=== PATIENT | female | born 1980 | race Caucasian/White ===

== ENCOUNTER 2022-07-29 15:37 | Outpatient (REF) | payer BC, SELFPAY ==
[2022-08-02 11:58] LABS: Chlamydia Result Negative (Negative); GC Result Negative (Negative)
== END 2022-07-29 15:38 | disposition home or self-care (01) ==
LOC: LBN 15:37
PROVIDERS: Visit Provider Advanced Practice Midwife
DX: N89.8 Other specified noninflammatory disorders of vagina (principal); Z11.3 Encounter for screening for infections with a predominantly sexual mode of transmission
CPT/HCPCS: 87491; 87591; 87480; 87510; 87660

== ENCOUNTER 2022-08-04 16:13 | Outpatient (REF) | payer BC, SELFPAY ==
--- NOTE | 2022-08-04 15:00 | PAPFT_PTH ---
PATIENT: Sosa Angeles LOC: [facility] U#:[id number] AGE/SX: 42/F ROOM: RE08/04/[address]: Supriya Robison CNM : 1980 BED: DIS: 08/04/2022 SPEC #: [id number] RECD: 08/05/22 15:40 STATUS: DENIS REChandler #: [id number] KAMLA: 08/04/22 15:[address]: Supriya Robison DEPT: [facility] Cytology RECD BY: Bernadette Love Tissues: 1 - CX/ENDOCX FOR PAP SMEARS Procedures: PAP THIN PREP/UVM Screening HPV DNA PROBE Comments: [id number]
== END 2022-08-04 16:14 | disposition home or self-care (01) ==
LOC: LBN 16:13
PROVIDERS: Visit Provider Advanced Practice Midwife
DX: Z12.4 Encounter for screening for malignant neoplasm of cervix (principal); Z11.51 Encounter for screening for human papillomavirus (HPV)
CPT/HCPCS: 88142; 87624

== ENCOUNTER 2022-08-29 01:49 | Outpatient (CLI) | payer BC, SELFPAY ==
--- NOTE | 2022-08-29 17:00 | DI.MAMMO_ITS ---
Exam(s) MAMMO SCREENING EXAM: MAMMO SCREENING CLINICAL HISTORY: screening. TECHNIQUE: Bilateral full field digital CC and MLO mammographic images were obtained with 3D tomosyn thesis and utilizing computer aided detection (CAD). COMPARISON: Baseline. FINDINGS: Fibroglandular tissue is dense, this somewhat decreasing the sensitivity mammogram for finding hidden underlying lesions. There are no obvious spiculated masses nor malignant appearing microcalcification groups. There is no significant architectural distortion nor skin thickening-retraction. IMPRESSION: Dense bilateral fibroglandular tissue. No obvious radiographic evidence of malignancy. Given the de nsity of her fibroglandular tissue if clinically indicated baseline screening bilateral ultrasound ca n be performed. BI-RADS Category 2 - Benign Findings Breast Density - Category C - Heterogeneously dense Breast density Category C or D implies that the patient has dense breast tissue. Dense breast tissue can make it harder to find cancer on a mammogram. Dense breast tissue is also associated with an incr eased risk of breast cancer. This information about the result of the mammogram report was provided to the patient to raise their awareness. Use this report when you speak with the patient about their risks for breast cancer, which includes their family history. At that time, you may recommend additional screening tests (Ultrasoun d or MRI) as these tests may add significant information. A negative radiographic report should not delay biopsy if a dominant or clinically suspicious mass is present. Up to ten percent of cancers are not identified on mammography. A negative report may reinforce clinical impression. Adenosis and dense breasts may obscure an underlying neoplasm. False positive reports average 6 to 10%. Patient will receive a letter notifying them of these results.
== END 2022-08-29 02:09 ==
LOC: DI 01:49
PROVIDERS: Visit Provider Advanced Practice Midwife
DX: Z12.31 Encounter for screening mammogram for malignant neoplasm of breast (principal)
CPT/HCPCS: 77063; 77067

== ENCOUNTER 2023-06-01 15:48 | Outpatient (REF) | payer BC, SELFPAY ==
[2023-06-01 22:08] LABS: Anion Gap 10.1 mmol/L (3-11); BUN 14 mg/dL (7-18); CO2 25.9 mmol/L (21.0-32.0); CREATININE 0.8 mg/dL (0.55-1.02); Calcium 9.8 mg/dL (8.5-10.1); Calculated LDL 108 mg/dL (<100); Chloride 103 mmol/L (98-107); Cholesterol 190 mg/dL (<200); Estimated GFR 93.12 (mL/min/1.73m2); Glucose 101 mg/dL (74-106); HDL Cholesterol 57 mg/dL (40-60); Magnesium 2.1 mg/dL (1.8-2.4); Potassium 3.7 mmol/L (3.5-5.1); Sodium 139 mmol/L (136-145); TSH (W/Ref FT4) 1.12 uIU/mL (0.36-3.74); Triglyceride 127 mg/dL (<150)
[2023-06-01 22:11] LABS: Hemoglobin A1C 5.3 % (<5.7)
[2023-06-02 20:42] LABS: FSH 5.4 mIU/mL (See Note)
== END 2023-06-01 15:49 | disposition home or self-care (01) ==
LOC: NCHCN 15:48
PROVIDERS: PCP Family Medicine; Visit Provider Family Medicine
DX: I10 Essential (primary) hypertension (principal); E78.00 Pure hypercholesterolemia, unspecified
CPT/HCPCS: 80048; 80061; 83001; 83036; 83735; 84443

== ENCOUNTER 2024-06-03 21:42 | Outpatient (REF) | payer BC, SELFPAY ==
[2024-06-03 17:44] LABS: Anion Gap 9.6 mmol/L (3-11); BUN 10 mg/dL (7-18); CO2 29.4 mmol/L (21.0-32.0); CREATININE 0.8 mg/dL (0.55-1.02); Calcium 9.4 mg/dL (8.5-10.1); Calculated LDL 125 mg/dL (<100); Chloride 103 mmol/L (98-107); Cholesterol 204 mg/dL (<200); Estimated GFR 92.54 (mL/min/1.73m2); Glucose 79 mg/dL (74-106); HDL Cholesterol 57 mg/dL (40-60); Potassium 4.2 mmol/L (3.5-5.1); Sodium 142 mmol/L (136-145); Triglyceride 113 mg/dL (<150)
[2024-06-04 09:05] LABS: HIV-1/2 Ag & Ab Screen Negative (Negative)
[2024-06-04 09:10] LABS: Hepatitis C Ab w Rflx HCV PCR Negative (Negative)
== END 2024-06-03 21:43 | disposition home or self-care (01) ==
LOC: NCHCN 21:42
PROVIDERS: PCP Family Medicine; Visit Provider Family Medicine
DX: I10 Essential (primary) hypertension (principal); Z00.00 Encounter for general adult medical examination without abnormal findings; E78.00 Pure hypercholesterolemia, unspecified
CPT/HCPCS: 80048; 80061; 86803; 87389

== ENCOUNTER 2024-06-12 02:08 | Outpatient (CLI) | payer BC, SELFPAY ==
--- NOTE | 2024-06-12 | DI.MAMMO_ITS ---
Exam(s) MAMMO SCREENING EXAM: MAMMO SCREENING CLINICAL HISTORY: SCREENING, Z12.31 TECHNIQUE: Bilateral full field digital CC and MLO mammographic images were obtained with 3D tomosyn thesis and utilizing computer aided detection (CAD). COMPARISON: Available for comparison. FINDINGS: Masses/Architectural Distortion: None seen. Microcalcifications: No suspicious pleomorphic-type are seen. Skin Thickening/Nipple Retraction: None. IMPRESSION: 1. No significant interval change with no specific features of malignancy noted. 2. Unless there is more urgent need, screening mammography is recommended, as per [place] guidelines. BI-RADS Category 1 - Negative Breast Density - Category C - Heterogeneously dense Breast density category C or D implies that the patient has dense breast tissue. Dense breast tissue is very common and is not abnormal but dense breast tissue can make it harder to find cancer on a ma mmogram. Also, dense breast tissue may increase their breast cancer risk. This information about the result of the mammogram report was provided to the patient to raise their awareness. Use this report when you speak with the patient about their risks for breast cancer, which includes their family hist ory. At that time, you may recommend for more screening tests (Ultrasound or MRI) as they might be us eful based on their risk. A negative radiographic report should not delay biopsy if a dominant or clinically suspicious mass is present. Up to ten percent of cancers are not identified on mammography. A negative report may reinforce clinical impression. Adenosis and dense breasts may obscure an underlying neoplasm. False positive reports average 6 to 10%. Patient will receive a letter notifying them of these results.
== END 2024-06-12 02:28 ==
LOC: DI 02:08
PROVIDERS: PCP Family Medicine; Visit Provider Family Medicine
DX: Z12.31 Encounter for screening mammogram for malignant neoplasm of breast (principal); R92.333 Mammographic heterogeneous density, bilateral breasts
CPT/HCPCS: 77063; 77067

== ENCOUNTER 2024-09-20 06:22 | Day surgery (SDC) | payer BC, SELFPAY ==
--- NOTE | 2024-09-19 14:12 | W.PM.DSUDISC ---
Date of service: 09/20/24 Discharge Plan Disposition Patient Disposition: Home Condition: Good Discharge Details Reason For Visit: screening colonocsopy Attending Provider: Jaylan Echevarria Primary Care Provider: Mariaa Esparza Home Meds and New Rx's Prescriptions: Continued Mirena 20 mcg/24 hours (8 yrs) 52 mg intrauterine device 1 device intrauterine ONCE Rx Instructions: as a single dose fluoxetine [Prozac] 20 mg capsule 60 mg PO DAILY pravastatin 40 mg tablet 40 mg PO DAILY lorazepam 0.5 mg tablet 0.5 mg PO QHS PRN hydroxyzine HCl 25 mg tablet 25 mg PO BID PRN losartan-hydrochlorothiazide 100-12.5 mg tablet 1 tab PO DAILY Discontinued bisacodyl [Dulcolax (bisacodyl)] 5 mg tablet,delayed release (DR/EC) 5 mg PO ONCE Qty: 4 0RF Rx Instructions: Take per colonoscopy instructions provided by ordering providers office polyethylene glycol 3350 17 gram/dose powder 17 g PO ONCE Qty: 238 0RF Rx Instructions: Take per colonoscopy instructions provided by ordering providers office Discharge Instructions Additional Instructions: Sosa, was very nice meeting you and your today. I hope you feel well after the procedure and do great this weekend. Everything went very smoothly. Your prep was outstanding, and I could see everything fine. I did not see any signs of tumors, polyps, or anything at all to worry about. With a negative screening colonoscopy, you are good for 10 years. If you need anything or have any questions, please do not hesitate to call. 1. If tolerated, consume a soft, low fiber diet for 1-2 days. 2[address] Do not drive, drink alcohol, operate machinery, make critical decisions, or do activities that require coordination or balance for 24 hours. 3. Because air was put into your colon during the procedure, expelling air from your rectum (passing gas or farting) is normal. 4. You may not have a bowel movement for 1-3 days because of the colonoscopy prep. This is normal. 5. Go directly to the emergency room if you notice any of the following: Develop chills (warm to touch), or if you have a thermometer and your temperature is above 101 Difficulty breathing or difficultly swallowing Persistent vomiting Severe abdominal pain, other than gas cramps Severe chest pain Black, tarry stools Any bleeding ? exceeding one tablespoon 6. Call your physician if the site where your intravenous was started becomes red, swollen, painful, and warm to touch. 7. Your physician has reviewed your pre-procedure medications. Please continue to take those medications as previously ordered. You will be given specific information/education regarding any changes to your medications before leaving. Activity:: Activity as Tolerated Diet:: As Tolerated Discharge Orders Discharge Orders: Discharge Order (Routine); Ordered 09/19/24 Ordered By: Jaylan Echevarria DS: Diagnosis Discharge Diagnosis (1) Encounter for screening colonoscopy: Status: Acute Asessment and Plan: Negative screening colonoscopy; recommend follow-up in 10 years
--- NOTE | 2024-09-19 14:15 | COLE_ITS ---
Date of service: 09/20/24 Time of Service: 07:51 Colonoscopy Report Date of procedure: 09/20/24 Pre-op diagnosis general: screening colonoscopy Post-op diagnosis procedure note: other (Negative screening colonoscopy) Procedure: colonoscopy Surgeon: Jaylan Echevarria Anesthesia Type: General:No Airway Estimated blood loss (mL): 0 Pathology: none sent Complications: None Disposition: same day Indications: Sosa us a 44 year old woman who needs a screening colonoscopy Prep: Miralax/Dulcolax Procedure Start Time: 07:35 Procedure End Time: 07:45 Retraction Time: 5 Findings: Negative screening colonoscopy Procedure Description: After the induction of monitored anesthetic care, and with the patient in left lateral decubitus position, I began by performing an external anorectal exam.? Perineum and skin were normal, as was the anal verge.? There are some redundant perianal skin consistent with external hemorrhoids.? Next, I performed a digital rectal exam.? I did not appreciate any abnormal findings.? Next, I advanced a colonoscope into the rectal vault.? I performed retroflexion.? This appeared normal.? Using insufflation, I then advanced the colonoscope beyond the rectal folds and into the sigmoid colon before advancing towards the cecum.? The quality of the prep was outstanding.? The scope was noted to be in the cecum by identification of the ileocecal valve and appendiceal orifice.? I then began withdrawing the colonoscope using repeated irrigation as necessary for full evaluation of the colonic mucosa. ?Once the scope was withdrawn to the level of the rectum, great care was taken to examine portions of the rectal folds.? I saw no signs of tumors, polyps, or any other worrisome pathology. finally, the scope was withdrawn and the patient was brought to the same-day surgery recovery unit as the anesthetic wore off. ?The findings and instructions were shared with the patient prior to discharge. [place] Bowel Prep [place] Bowel Prep Right Colon: 3 Left Colon: 3 Transverse Colon: 3 Total Score: 9
[2024-09-20 06:30] VITALS: BP 126/81; PULSE 81; RESP 16; O2SAT 96
[2024-09-20] MEDS: Lactated Ringers 1,000 ML 80 ML IV (06:53)
--- NOTE | 2024-09-20 06:53 | ANES.PREOP_ITS ---
General Info Date of Service Date Performed: 09/20/24 Height: 5 ft 2 in Weight: 66.8 kg Body Mass Index (BMI): 26.9 Surgical Procedure: Operation Date: 09/20/24 07:35 Proposed Procedure Side Surgeon p Colonoscopy Jaylan Echevarria MD Meds Allergies and Home Medications Allergies Allergy/AdvReac Type Severity Reaction Status Date / Time Sulfa (Sulfonamide Allergy Skin Rash Verified 09/20/24 06:41 Antibiotics) Home Medication ?Medication ?Instructions ?Recorded levonorgestrel 21 mcg/24 hr (up to 1 device intrauterine ONCE 08/04/22 8 years) 52 mg intrauterine device (Mirena) hydroxyzine HCl 25 mg tablet 25 mg PO BID PRN 08/14/24 lorazepam 0.5 mg tablet 0.5 mg PO QHS PRN 08/14/24 losartan 100 1 tab PO DAILY 08/14/24 mg-hydrochlorothiazide 12.5 mg tablet pravastatin 40 mg tablet 40 mg PO DAILY 08/14/24 fluoxetine 20 mg capsule (Prozac) 60 mg PO DAILY 08/22/24 Current Visit Medications: Current Medications Generic Name Dose Route Start Last Admin Trade Name Freq PRN Reason Stop Dose Admin Ringer's Solution 1,000 mls @ 80 mls/hr 09/20/24 06:00 09/20/24 06:53 IV 09/20/24 23:59 80 mls/hr INFUSION LYDIA Administration IV Miscellaneous Supplies 1 each 09/20/24 06:00 Iv Access IV 09/20/24 23:59 DIRECTED LYDIA Ondansetron HCl 4 mg 09/19/24 14:16 Ondansetron 4 Mg/2 Ml Vial IVP 10/19/24 14:15 Q4H PRN PRN Nausea / Vomiting Sodium Chloride 0 ml 09/20/24 06:00 Normal Saline Flush 10 Ml Syr IV 09/20/24 23:59 PRN PRN Sodium Chloride 0 ml 09/20/24 06:00 Normal Saline 10 Ml Vial IJ 09/20/24 23:59 DIRECTED PRN Sterile Water 0 ml 09/20/24 06:00 Water,Injection,Sterile 10 Ml Vial IJ 09/20/24 23:59 DIRECTED PRN PFSH Active Problems Active Problems: Problem Status Onset Code Encounter for screening colonoscopy Acute Z12.11 Post traumatic stress disorder Acute F43.10 Essential hypertension Acute I10 Hyperlipidemia Acute E78.5 Eating disorder Acute F50.9 Pelvic pain Acute R10.2 Presence of IUD Acute Z97.5 Depression Chronic F32.A Anxiety Chronic F41.9 DUB (dysfunctional uterine bleeding) Acute N93.8 Medical History Medical History PTSD (post-traumatic stress disorder) pt states no triggers at this time History of alcohol abuse Vaginal discharge Routine gynecological examination Encounter for IUD insertion Encounter for IUD removal History of gestational diabetes Surgical History Surgical History (Updated 09/20/24 @ 06:42 by Brook Schneider, RN) Hx of wisdom tooth extraction Previous section Tobacco Smoking/Tobacco Use Status: Former Tobacco Use Alcohol Alcohol Intake: former Details: Recently stopped drinking alcohol x 3 weeks for a break Substance Use Substance use: Never Substance use type: does not use Prental History History 2 Para 2 Hx # Term Pregnancies Multiple births Hx # Pregnancies Ectopic pregnancies AB induced Hx Number of Living Children 2 AB spontaneous Past Pregnancies Del. Date GA/Weeks # Preg Succ Route Wgt Sex Labor Lgth Anesth esia Location [facility] 02/06/05 [place] 10/20/10 Male Delivery Date: 02/06/05 Last Updated by: Zoila Richey CNM Gestational diabetes Delivery Date: 10/20/10 Last Updated by: Zoila Richey CNM emergency , proteinuria, gestational diabetes controlled with medication Vital Signs and Lab Results Vital Signs Most Recent Vital Signs in EMR: Most Recent Vital Signs Pulse Resp BP Pulse Ox 81 16 126/81 96 09/20/24 06:30 09/20/24 06:30 09/20/24 06:30 09/20/24 06:30 Lab Results Blood Type / Crossmatch: No Data to Display Complete Blood Count: No Data to Display Complete Metabolic Panel: No Data to Display Liver Function Panel: No Data to Display Coagulation Panel: No Data to Display Cardiac Panel: No Data to Display Arterial Blood Gas: No Data to Display Venous Blood Gas: No Data to Display Pancreas Panel: No Data to Display Thyroid Panel: No Data to Display Infectious Disease: No Data to Display Blood Cultures: No Data to Display Toxicology Panel: No Data to Display Panel: No Data to Display Anesthesia Assessment and Plan Anesthesia History Personal History: No History of Anesthesia Complications Family History: No Family History of Anesthesia Complications Exercise Tolerance Exercise Tolerance: Metabolic Equivalents>4 Pertinent Negatives Pertinent Negatives: No Symptoms of GERD, No Major Cardiovascular Symptoms or Complaints, No Major Pulmonary Symptoms or Complaints and No History of CVA/TIA Cardiac & Pulmonary Exam Cardiac Exam: Normal S1/S2 Heart Sounds Pulmonary Exam: Clear Bilateral Breath Sounds Implantable Cardiac Device Does patient have a Pacemaker or an ICD?: No Airway Exam Known Difficult Airway: No Mallampati Class: 2 Mouth Opening: Normal (> 3cm) Thyromental Distance: Greater than 3 cm Neck Range of Motion: Full ROM Neck Circumference: Normal Teeth Condition: Normal Dentition ASA Classification ASA Score: ASA 2 Emergency Case?: No NPO Status NPO Status: NPO Clears >2 hours, Solids >8 hours Status Status: Negative HCG Anesthesia Plan Resuscitation Status: Full Code Anesthesia Technique: General Anesthesia Airway Planned: Natural Airway Monitors Used: Standard Monitors
[2024-09-20 06:56] VITALS: BMI 26.9
[2024-09-20 07:56] VITALS: BP 110/81; PULSE 74; RESP 16; TEMP 36.6; O2SAT 99
--- NOTE | 2024-09-20 08:12 | W.ANESPOSTOP ---
Postoperative Evaluation Date, Time and Location Date Performed: 09/20/24 Time Performed: 08:00 Patient Location: Day Surgery Unit Vital Signs Most Recent Imported Vital Signs: Most Recent Vital Signs Temp Pulse Resp BP Pulse Ox 36.6 C 74 16 110/81 99 09/20/24 07:56 09/20/24 07:56 09/20/24 07:56 09/20/24 07:56 09/20/24 07:56 Pain Score Most Recent Pain Score: Most Recent Pain Score Pain Level 0 09/20/24 07:56 Assessment Mental Status: Awake (Alert & Oriented to Patient Baseline) Airway and Respiratory Function: Patent airway with normal (patient baseline) respiratory exam Cardiovascular Function: Hemodynamically Stable Hydration Status: Adequately Hydrated Nausea & Vomiting: No Nausea or Vomiting Pain: Pt. Denies Any Pain Peripheral Nerve Block: Patient did not receive a nerve block
[2024-09-20 08:26] VITALS: BP 117/85; PULSE 67; RESP 16; TEMP 36.7; O2SAT 100
== END 2024-09-20 08:33 | disposition home or self-care (01) ==
LOC: SUR 06:22
PROVIDERS: PCP Family Medicine; Visit Provider Surgery
PROC: 0DJD8ZZ Inspection of Lower Intestinal Tract, Via Natural or Artificial Opening Endoscopic (ICD-10-PCS; CPT 45378; principal; 2024-09-20 07:30)
DX: Z12.11 Encounter for screening for malignant neoplasm of colon (principal); I10 Essential (primary) hypertension; K64.4 Residual hemorrhoidal skin tags
CPT/HCPCS: 45378; J2704

== ENCOUNTER 2025-06-05 17:06 | Outpatient (REF) | payer BC, SELFPAY ==
[2025-06-05 21:16] LABS: Anion Gap 8.1 mmol/L (3-11); BUN 14 mg/dL (7-18); CO2 28.9 mmol/L (21.0-32.0); Calcium 9.0 mg/dL (8.5-10.1); Chloride 104 mmol/L (98-107); Glucose 117 mg/dL (74-106); Potassium 3.6 mmol/L (3.5-5.1); Sodium 141 mmol/L (136-145)
== END 2025-06-05 17:07 | disposition home or self-care (01) ==
LOC: NCHCN 17:06
PROVIDERS: PCP Family Medicine; Visit Provider Family Medicine
DX: I10 Essential (primary) hypertension (principal)
CPT/HCPCS: 80048

== ENCOUNTER → 2025-06-17 00:30 | Outpatient (CLI) | payer BC, SELFPAY ==
--- NOTE | 2025-06-17 | DI.MAMMO_ITS ---
Exam(s) MAMMO SCREENING EXAM: MAMMO SCREENING CLINICAL HISTORY: SCREENING, Z12.31. TECHNIQUE: Bilateral full field digital CC and MLO mammographic images were obtained with 3D tomosynthesis and utilizing computer aided detection (CAD). COMPARISON: Prior mammograms were reviewed. FINDINGS: There has been no significant change in the appearance and distribution of the fibroglandular tissue which is again noted be heterogeneously dense.. There are no new spiculated masses nor malignant appearing microcalcification groups. There is no significant architectural distortion nor skin thickening-retraction. IMPRESSION: No radiographic evidence of malignancy. BI-RADS Category 1 - Negative Breast Density - Category C - The breast are heterogeneously dense, which may obscure small masses. Breast density Category C or D implies that the patient has dense breast tissue. Dense breast tissue can make it harder to find cancer on a mammogram. Dense breast tissue is also associated with an increased risk of breast cancer. This information about the result of the mammogram report was provided to the patient to raise their awareness. Use this report when you speak with the patient about their risks for breast cancer, which includes their family history. At that time, you may recommend additional screening tests (Ultrasound or MRI) as these tests may add significant information. A negative radiographic report should not delay biopsy if a dominant or clinically suspicious mass is present. Up to ten percent of cancers are not identified on mammography. A negative report may reinforce clinical impression. Adenosis and dense breasts may obscure an underlying neoplasm. False positive reports average 6 to 10%. Patient will receive a letter notifying them of these results.
== END ==
PROVIDERS: PCP Family Medicine; Visit Provider Family Medicine
DX: Z12.31 Encounter for screening mammogram for malignant neoplasm of breast (principal); R92.323 Mammographic fibroglandular density, bilateral breasts
CPT/HCPCS: 77063; 77067